=== PATIENT | male | born 1965 ===

== ENCOUNTER 2025-03-04 09:21 | Emergency (ER) | payer BC ==
[~2025-03-04] VITALS: Ht 175.3 cm; Wt 72.6 kg
[~2025-03-04 09:21] MED LIST: ACET325; ACETAMINOPHEN; CHLO25 PO; DIPHENHYDRAMINE; RXLORA1 PO
[2025-03-04 10:25] LABS: Source, Urine Voided
[2025-03-04] MEDS ORDERED: Ondansetron HCl 2 MG / ML 2ML Vial IV ONE (10:25)
[2025-03-04] MEDS ORDERED: Ketorolac Tromethamine 30mg Vial IV ONE (10:25)
[2025-03-04 10:28] LABS: Bilirubin, Urine Neg (Neg); Color, Urine Yellow (P-Yellow); Glucose Qualitative, Urine Neg (Neg); Ketones, Urine Neg (Neg); Leukocyte Esterase, Urine Neg (Neg); Protein, Urine 1+ (Neg); Specific Gravity, Urine 1.030 (1.003-1.022); Urobilinogen, Urine NORM (Normal)
[2025-03-04 10:49] LABS: White Blood Cells, Urine 0-2 /hpf (0-5)
[2025-03-04 10:52] LABS: BASOPHILS ABSOLUTE AUTO 0.05 K/mm3 (0.00-0.23); BASOPHILS PERCENT AUTO 0 % (0-2); EOSINOPHILS ABSOLUTE AUTO 0.01 K/mm3 (0.00-0.68); EOSINOPHILS PERCENT AUTO 0 % (0-6); Hematocrit 42.1 % (37.0-53.0); Hemoglobin 14.5 g/dL (13.5-17.5); IMMATURE GRAN ABSOLUTE AUTO 0.07 K/mm3 (0.00-0.10); IMMATURE GRAN PERCENT AUTO 0 % (0-1); LYMPHOCYTES ABSOLUTE AUTO 0.72 K/mm3 (0.84-5.20); LYMPHOCYTES PERCENT AUTO 4 % (21-46); MONOCYTES ABSOLUTE AUTO 0.41 K/mm3 (0.16-1.47); MONOCYTES PERCENT AUTO 2 % (4-13); Mean Corpuscular HGB Conc 34.4 g/dL (31.5-36.5); Mean Corpuscular Volume 92 fL (80-100); NEUTROPHILS ABSOLUTE AUTO 16.59 K/mm3 (1.96-9.15); NEUTROPHILS PERCENT AUTO 93 % (41-73); NRBC ABSOLUTE 0.00 K/mm3 (0.00-0.02); NRBC Auto 0.0 /100 WBC (0.0-0.2); Platelet Count 181 K/mm3 (150-400); RDW Coefficient Variation 11.9 % (11.7-14.2); RDW Standard Deviation 40.0 fL (35.1-46.3)
[2025-03-04 11:06] LABS: Alanine Aminotransfer (ALT/SGP 28.0 U/L (12-78); Albumin, Blood 4.2 g/dL (3.4-5.0); Albumin/Globulin Ratio 1.2 (0.8-1.8); Anion Gap 10.0 mmol/L (3-11); Aspartate Aminotrans (AST/SGOT 21.0 U/L (12-37); Bilirubin, Total 0.5 mg/dL (0.1-1.0); Blood Urea Nitrogen 24.0 mg/dL (8-24); CO2, Blood 23.0 mmol/L (21-32); Calcium, Blood 9.1 mg/dL (8.5-10.1); Chloride, Blood 109.0 mmol/L (98-108); Creatinine, Blood 0.93 mg/dL (0.60-1.20); Globulin, Blood 3.5 g/dL (2.2-4.0); Glucose, Blood 131.0 mg/dL (70-99); Potassium, Blood 3.9 mmol/L (3.5-5.5); Sodium, Blood 138.0 mmol/L (136-145); Total Protein, Blood 7.7 g/dL (6.4-8.2)
[2025-03-04] MEDS ORDERED: Morphine Sulfate 4 MG/1 ML Injection IV ONE (12:00)
[2025-03-04 12:30] VITALS: BP 150/68
[2025-03-04] MEDS ORDERED: HYDROCODONE-AC1 EA10 PO (12:32)
[2025-03-04] MEDS ORDERED: ONDA4ODT MM (12:32)
[2025-03-04] MEDS ORDERED: IBUP800 PO (12:32)
== END 2025-03-04 12:54 | disposition home or self-care (01) ==
LOC: ER 09:21
PROVIDERS: Emergency Medicine
DX: N13.2 Hydronephrosis with renal and ureteral calculous obstruction (principal); Z79.899 Other long term (current) drug therapy
CPT/HCPCS: 74177; 80053; 81001; 83690; 85025; 96374-59; 96375; 99284-25; J1885; J2270; J2405; Q9967